=== PATIENT | female | born 1990 | race Caucasian/White ===

== ENCOUNTER 2017-06-10 13:49 | Emergency (ER) | payer BC, OTHER ==
[2017-06-10 13:54] VITALS: BP 129/89; PULSE 87; TEMP 98.9; BMI 30.3
--- NOTE | 2017-06-10 13:59 | PDOC ---
History of Present Illness - General Chief Complaint: Injury Stated Complaint: RIGHT FOOT PAIN S/P FALL Time Seen by Provider: 06/10/17 13:52 History Source: Patient, Old Records Exam Limitations: No Limitations - History of Present Illness Initial Comments: 06/10/17 13:53 26-year-old female with no significant past medical history presents the emergency Department with complaints of right foot pain status post fall last night. The patient states that she was coming down the stairs and missed the last step and rolled her ankle. The pain is on the right lateral aspect of her foot towards her fifth digit. The patient is able to bear weight on the extremity but has pain with ambulation. She did not injure any other areas of her body. There is no paresthesias to the foot.The patient reports taking Advil with some pain relief. Past History - Past Medical History Allergies/Adverse Reactions: Allergies Allergy/AdvReac Type Severity Reaction Status Date / Time No Known Allergies Allergy Verified 06/10/17 13:51 Home Medications: Ambulatory Orders NK [No Known Home Medication] 06/10/17 Review of Systems - Review of Systems Able to Perform ROS?: Yes Is the patient limited Chinese proficient: No Constitutional: No: Symptoms Reported HEENTM: No: Symptoms Reported Respiratory: No: Symptoms reported Cardiac (ROS): No: Symptoms Reported ABD/GI: No: Symptoms Reported : No: Symptoms Reported Musculoskeletal: Yes: Symptoms Reported, See HPI Integumentary: No: Symptoms Reported *Physical Exam - Physical Exam Comments: 06/10/17 13:55 GENERAL: Well developed, well nourished. Awake and alert. No acute distress. MUSCULOSKELETAL?EXTREMITIEDS: There is swelling of the lateral malleolus and dorsum of the foot in the 4th and 5th metatarsal region. There is tenderness to palpation in those areas. Distal pulses are +2 and sensation and motor are completely intact. SKIN: Warm and dry. Normal capillary refill. No rashes. No jaundice. NEUROLOGICAL: Alert, awake, appropriate. Cranial nerves 2-12 intact. Grossly non-focal exam. ED Treatment Course - RADIOLOGY Radiology Studies Ordered: Category Date Time Status ANKLE & FOOT-RIGHT* [RAD] Stat Radiology 06/10/17 13:53 Ordered Medical Decision Making - Medical Decision Making 06/10/17 13:54 26-year-old female with no past medical history with right foot pain following a mechanical fall earlier this morning. Differential diagnosis includes but is not limited to: Fracture, strain, contusion. Plan: 1. Plain film of right foot 2. Pain management 3. Observe and reevaluate 06/10/17 15:00 Addendum: Plain films show a fracture of the fifth metatarsal. Bulky dressing was placed on the foot with a soft-sole shoe. Crutches were given for ambulation and the patient was advised to follow-up with ortho or podiatry within the next week. NSAIDs as needed for pain and return to the ED if symtpoms persist, worsen or new symptoms arise. *DC/Admit/Observation/Transfer Diagnosis at time of Disposition: Nondisplaced fracture of fifth right metatarsal bone, Fall on stairs - Discharge Dispostion Disposition: HOME Condition at time of disposition: Stable Admit: No - Referrals Referrals: Rafia Ballesteros MD [Primary Care Provider] - - Patient Instructions Printed Discharge Instructions: DI for Foot Fracture Additional Instructions: Orthopedic Surgery Dr. Jacob [address], [place] [id number] Podiatry Dr. Jaden Rene [address] [place] [address] You may take Ibuprofen 600-800mg every 6-8 hours as needed for pain. Ice and elevation of the extremity. Crutches for ambulation. Follow-up with an orthopedist or powerhouse attendant within the next week. Return to the ED if your symptoms persist, worsen or new symptoms arise.
== END 2017-06-10 15:23 | disposition home or self-care (01) ==
LOC: FER 13:49
DX: S92.354A Nondisplaced fracture of fifth metatarsal bone, right foot, initial encounter for closed fracture (principal); W10.9XXA Fall (on) (from) unspecified stairs and steps, initial encounter; Y93.89 Activity, other specified; Y92.9 Unspecified place or not applicable
CPT/HCPCS: 73610-TC-RT; 73630-TC-RT; 84703; 99283-25